=== PATIENT | male | born 1985 | race Caucasian/White ===

== ENCOUNTER 2017-01-10 18:29 | Emergency (ER) | payer OTHER ==
[2017-01-10 18:41] LABS: PH,URINE 6.5 (5.0 - 9.0); URINE BILIRUBIN NEGATIVE (NEGATIVE); URINE BLOOD 3+ (NEGATIVE); URINE GLUCOSE (UA) NORMAL (NORMAL); URINE KETONE NEGATIVE (NEGATIVE); URINE LEUKOCYTE ESTERASE TRACE (NEGATIVE); URINE NITRATE NEGATIVE (NEGATIVE); URINE PROTEIN 1+ (NEGATIVE)
[2017-01-10 18:52] LABS: URINE RBC >20 /[HPF] (0-2); URINE SQUAMOUS EPITHELIAL CELL 0-10 /[HPF] (NONE SEEN)
[2017-01-10 18:53] LABS: URINE BACTERIA 1+ (NONE SEEN); URINE MUCUS 3+
[2017-01-10 19:03] LABS: BASO % 0.2 % (0.2-1.2); EOS # 0.1 10_X3_uL (0.0-0.5); EOS % 0.6 % (0.8-7.0); GRAN # 7.5 10_X3_uL (1.8-5.4); GRAN % 61.9 % (34.0-67.9); HEMATOCRIT 43.5 % (40-51); HEMOGLOBIN 14.4 g/dL (13.7-17.5); LYMPH # 3.6 10_X3_uL (1.3-3.6); LYMPH % 29.7 % (21.8-53.1); MEAN CORPUSCULAR HEMOGLOBIN 28.6 pg (27.0-33.0); MEAN CORPUSCULAR HGB CONC 33.1 g/dL (32.0-36.0); MEAN CORPUSCULAR VOLUME 86.5 fL (79-92); MEAN PLATELET VOLUME 9.4 fl (7.5-11.5); MONO # 0.9 10_X3_uL (0.3-0.8); MONO % 7.6 % (5.3-12.2); PLATELET COUNT 314 x10_3/uL (163-337); RED BLOOD COUNT 5.03 x10_6/uL (4.6-6.1); RED CELL DISTRIBUTION WIDTH 13.2 % (11.6-14.4); WHITE BLOOD COUNT 12.1 x10_3/uL (4.2-9.1)
[2017-01-10 19:20] LABS: ALBUMIN 4.1 gm/dL (3.4-5.0); ALKALINE PHOSPHATASE 66 U/L (50-136); ALT/SGPT 18 U/L (7.53-40.17); AMYLASE 73 U/L (15.62-74.58); AST/SGOT 17 U/L (6.66-35.34); CALCIUM 8.6 mg/dL (8.7-10.7); CARBON DIOXIDE 22 mmol/L (21-32); CREATININE 0.9 mg/dL (0.6-1.3); GLUCOSE,RANDOM 100 mg/dL (70-99); LIPASE 38 U/L (6.75-60.75); POTASSIUM 3.6 mmol/L (3.5-5.1); SODIUM 140 mmol/L (136-145); TOTAL PROTEIN 7.1 gm/dL (6.4-8.2)
[2017-01-10 19:22] LABS: BILIRUBIN,TOTAL < 0.15 mg/dL (0.0-1.0); BLOOD UREA NITROGEN 6 mg/dL (7-18)
== END 2017-01-10 20:33 | disposition home or self-care (01) ==
LOC: ER 18:29
PROVIDERS: Emergency Medicine
DX: N30.90 Cystitis, unspecified without hematuria (principal); R10.12 Left upper quadrant pain
CPT/HCPCS: 36415; 74150; 80053; 81001; 82150; 83690; 85025; 87086; 99284-25

== ENCOUNTER 2017-02-23 23:00 | Emergency (ER) | payer OTHER | END 2017-02-24 01:50 | disposition home or self-care (01) | LOC: ER 23:00 | DX: S60.212A Contusion of left wrist, initial encounter (principal); S22.32XA Fracture of one rib, left side, initial encounter for closed fracture; W19.XXXA Unspecified fall, initial encounter; Y92.009 Unspecified place in unspecified non-institutional (private) residence as the place of occurrence of the external cause; F17.220 Nicotine dependence, chewing tobacco, uncomplicated; Z88.2 Allergy status to sulfonamides; Z88.8 Allergy status to other drugs, medicaments and biological substances | CPT/HCPCS: 71250; 73110; 99070; 99283-25 ==

== ENCOUNTER 2017-03-02 15:51 | Emergency (ER) | payer OTHER | END 2017-03-02 19:41 | disposition home or self-care (01) | LOC: ER 15:51 | DX: J06.9 Acute upper respiratory infection, unspecified (principal) | CPT/HCPCS: 99282 ==

== ENCOUNTER 2017-04-01 20:59 | Emergency (ER) | payer OTHER | END 2017-04-01 23:10 | disposition home or self-care (01) | LOC: ER 20:59 | DX: S93.401A Sprain of unspecified ligament of right ankle, initial encounter (principal); W30.89XA Contact with other specified agricultural machinery, initial encounter; Y93.H9 Activity, other involving exterior property and land maintenance, building and construction; Y92.009 Unspecified place in unspecified non-institutional (private) residence as the place of occurrence of the external cause; F17.220 Nicotine dependence, chewing tobacco, uncomplicated; M85.461 Solitary bone cyst, right tibia and fibula | CPT/HCPCS: 29515; 73610; 99070; 99283-25 ==